=== PATIENT | male | born 1955 | race Two or more races ===

== ENCOUNTER 2017-10-23 09:17 | Outpatient (CLI) | payer OTHER | END 2017-10-23 09:25 | disposition home or self-care (01) | LOC: RAD 501 09:17 | DX: J44.1 Chronic obstructive pulmonary disease with (acute) exacerbation (principal) ==

== ENCOUNTER 2017-12-25 09:10 | Emergency (ER) | payer OTHER ==
[~2017-12-25] VITALS: Ht 180.3 cm; Wt 97.1 kg
[2017-12-25] MEDS ORDERED: HYZAAR 100-251 EACH (09:15)
[2017-12-25] MEDS ORDERED: FENOFIBRATE150 MG (09:16)
[2017-12-25] MEDS ORDERED: SIMVASTATIN10 MG (09:16)
[2017-12-25] MEDS ORDERED: TOPROL XL50 M1 (09:16)
[2017-12-25] MEDS ORDERED: METFORMIN HCL500 MG (09:16)
[2017-12-25] MEDS ORDERED: SYNTHROID200 MCG (09:17)
[2017-12-25] MEDS ORDERED: VITAMIN D5000 UNIT (09:17)
[2017-12-25] MEDS ORDERED: SYNTHROID50 MCG (09:17)
[2017-12-25] MEDS ORDERED: DICLOFENAC POTA50 MG PO (14:05)
[2017-12-25] MEDS ORDERED: XANAX0.25 MG PO (14:05)
[2017-12-25] MEDS ORDERED: NORFLEX100MG PO (14:05)
[2017-12-25] MEDS ORDERED: NASONEX17 GM NASAL (14:05)
== END 2017-12-25 14:11 | disposition home or self-care (01) ==
LOC: ER 09:10
DX: M54.2 Cervicalgia (principal); M54.5 Low back pain; M25.512 Pain in left shoulder; M25.511 Pain in right shoulder; R07.89 Other chest pain

== ENCOUNTER 2019-01-05 11:20 | Emergency (ER) | payer OTHER ==
[~2019-01-05] VITALS: Ht 180.3 cm; Wt 98.4 kg
[~2019-01-05 11:20] MED LIST: DICLOFENAC POTA50 MG PO; FENOFIBRATE150 MG; HYZAAR 100-251 EACH; METFORMIN HCL500 MG; NASONEX17 GM NASAL; NORFLEX100MG PO; SIMVASTATIN10 MG; SYNTHROID200 MCG; SYNTHROID50 MCG; TOPROL XL50 M1; VITAMIN D5000 UNIT; XANAX0.25 MG PO
== END 2019-01-05 16:44 | disposition home or self-care (01) ==
LOC: ER 11:20
DX: J09.X2 Influenza due to identified novel influenza A virus with other respiratory manifestations (principal)